=== PATIENT | female | born 1980 | race Caucasian/White ===

== ENCOUNTER 2016-05-17 17:33 | Emergency (ER) | payer OTHER, MEDICARE ==
[~2016-05-17 17:33] MED LIST: ABILIFY20 MG PO; ANBESOL PO; ATIVAN0.5 MG PO; BENTYL 10 MG CA10 MG PO; BETAMETHASONE D1 CRE TOP; BIOTENE DRY MO237 ML PO; CELEXA20 MG PO; CEPHALEXIN500 MG PO; CLARITIN10 MG PO; DIVALPROEX SOD500 MG PO; EVENING PRIMRO500 MG PO; LIDOCAINE HC PR; MASON NATURAL325 MG PO; MILK OF MAGNESI30 ML PO; MOTRIN 400MG (400 MG PO; MULTIVITAMIN1 TAB PO; NASONEX0.05 MG/Ac NAS; NEXIUM 40MG40 MG PO; Q-TUSSIN100 MG/5 M PO; RECTIV0.4% PR; STOOL SOFTENER100 MG PO; TOLNAFTATE 1% TOP; TUMS500 MG PO; TYLENOL 8 HOUR650 MG PO; TYLENOL500 MG PO; VITAMIN B2100 MG PO; [UNRECOGNIZED DRUG - OTHER] PO
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
[2016-05-17 18:17] LABS: ABSOLUTE BASOPHIL COUNT 0 /CUMM (0.0-0.2); ABSOLUTE EOSINOPHIL COUNT 0 /CUMM (0.0-0.7); ABSOLUTE GRANULOCYTE CT 2.4 /CUMM (1.4-6.5); ABSOLUTE LYMPH COUNT 1.5 /CUMM (1.2-3.4); ABSOLUTE MONOCYTE COUNT 0.5 /CUMM (0.10-0.60); BASOPHIL % 0.5 % (0.0-2.0); EOSINOPHIL % 0.7 % (0-5); GRANULOCYTE % 54.2 % (42.2-75.2); HEMATOCRIT 41.7 % (37-47); MEAN CORPUSCULAR HGB 34.8 PG (27.0-31.0); MEAN CORPUSCULAR HGB CONC 34.6 G/DL (33.0-37.0); MEAN CORPUSCULAR VOLUME 100.6 FL (81.0-99.0); MEAN PLATELET VOLUME 7.4 FL (7.4-10.4); PLATELET COUNT 278 /CUMM (130-400); RBC DISTRIBUTION WIDTH 13.4 % (11.5-14.5); RED BLOOD CELL CT 4.15 /CUMM (4.20-5.40); WHITE BLOOD CELL COUNT 4.4 /CUMM (4.8-10.8)
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
[2016-05-17] MEDS ORDERED: ABILIFY30 M1 PO (20:53)
[2016-05-17] MEDS ORDERED: METAMUCIL0.52 GM PO (20:55)
[2016-05-18 14:39] VITALS: BP 124/84
== END 2016-05-18 14:40 ==
LOC: ERH 17:33
PROVIDERS: Emergency Medicine
DX: F32.9 Major depressive disorder, single episode, unspecified (principal); R45.851 Suicidal ideations; K59.4 Anal spasm
CPT/HCPCS: 80307; G0463; G0480